=== PATIENT | female | born 1950 | race Two or more races ===

== ENCOUNTER 2016-09-03 02:07 | Emergency (ER) | payer MEDICAID ==
[~2016-09-03 02:07] MED LIST: HIGH CHOLESTROL; HTN MED; SYNTHROID25 MC1 PO
[2016-09-03] MEDS ORDERED: SYNTHROID75 MC1 PO (02:51)
[2016-09-03] MEDS ORDERED: ZOCOR40 M1 PO (02:51)
[2016-09-03] MEDS ORDERED: TENORMIN25 M1 PO (02:52)
[2016-09-03] MEDS ORDERED: FOSAMAX70 M1 PO (02:52)
== END 2016-09-03 04:13 ==
LOC: EDMED 02:07
DX: M25.511 Pain in right shoulder (principal); I25.10 Atherosclerotic heart disease of native coronary artery without angina pectoris; I10 Essential (primary) hypertension; E03.9 Hypothyroidism, unspecified; Z86.718 Personal history of other venous thrombosis and embolism; Z95.5 Presence of coronary angioplasty implant and graft; Z88.0 Allergy status to penicillin; Z79.890 Hormone replacement therapy; Z79.899 Other long term (current) drug therapy